=== PATIENT | male | born 1945 | race Caucasian/White ===

== ENCOUNTER → 2016-10-12 | Outpatient (CLI) | payer BC ==
[~2016-10-12] MED LIST: ASPI81TA28 PO; LEVO137T3 PO; NAPR1TAB9 PO
[2016-10-12 10:36] LABS: BASO % 0.7 %; BASO ABS # 0.03 K/uL (0-0.2); COMPLETE YES; EOS % 5.5 %; HEMATOCRIT 40.6 % (42-52); IG% 0.2 %; LYMPH % 24.1 %; LYMPH ABS # 1.05 K/uL (1.2-3.4); MEAN CELL VOLUME 96.9 fL (80-100); MEAN CORPUSCULAR HEMOGLOBIN 31.7 pg (25-34); MEAN CORPUSCULAR HGB CONC 32.8 g/dl (32-36); MEAN PLATELET VOLUME 10.8 fL (7.4-10.4); MONO % 14.2 %; NEUT % 55.3 %; PLATELET COUNT 309 K/uL (130-400); RED BLOOD COUNT 4.19 M/uL (4.7-6.1); WHITE BLOOD COUNT 4.36 K/uL (4.8-10.8)
[2016-10-12 10:51] LABS: URINE APPEARANCE CLEAR (CLEAR); URINE BILIRUBIN NEG (NEG); URINE COLOR YELLOW; URINE NITRITE NEG (NEG); URINE PH 6.5 (4.5-7.5); URINE SPECIFIC GRAVITY 1.015 (1.000-1.030); UROBILINOGEN NEG (NEG)
[2016-10-12 10:55] LABS: MANUAL MICROSCOPIC REQUIRED? NO; REVIEW REQ? NO
[2016-10-12 11:19] LABS: ALT/SGPT 21 U/L (12-78); AST/SGOT 20 U/L (15-37); BLOOD UREA NITROGEN 23 mg/dl (7-18); BUN/CREATININE RATIO 23.3 (10-20); CALCIUM 8.5 mg/dl (8.5-10.1); CARBON DIOXIDE 29 mmol/L (21-32); CHLORIDE 107 mmol/L (98-107); GLUCOSE 94 mg/dl (70-99); POTASSIUM 4.1 mmol/L (3.5-5.1); SODIUM 142 mmol/L (136-145); TRIGLYCERIDES 66 mg/dl (0-150); VERY LOW DENSITY LIPOPROT CALC 13 mg/dl
[2016-10-12 11:30] LABS: ALKALINE PHOSPHATASE 108 U/L (45-117); CHOLESTEROL 194 mg/dl (0-200); CHOLESTEROL/HDL RATIO 2.5; HDL CHOLESTEROL 78 mg/dl; LDL CHOLESTEROL CALCULATED 103 mg/dl; THYROID STIMULATING HORMONE 0.793 uIu/ml (0.300-4.500)
== END | disposition home or self-care (01) ==
LOC: C.LABBC 07:58
PROVIDERS: ATTEND Internal Medicine Pulmonary Disease
DX: Z00.00 Encounter for general adult medical examination without abnormal findings (principal); Z12.5 Encounter for screening for malignant neoplasm of prostate; E78.5 Hyperlipidemia, unspecified; E03.9 Hypothyroidism, unspecified

== ENCOUNTER → 2016-10-15 | Outpatient (CLI) | payer BC | END | disposition home or self-care (01) | LOC: C.LAB1850 11:06 | PROVIDERS: ATTEND Internal Medicine Pulmonary Disease | DX: Z00.00 Encounter for general adult medical examination without abnormal findings (principal); E78.5 Hyperlipidemia, unspecified; E03.9 Hypothyroidism, unspecified; N41.9 Inflammatory disease of prostate, unspecified ==

== ENCOUNTER → 2016-12-01 | Outpatient (CLI) | payer BC ==
[2016-12-01 17:19] LABS: URINE APPEARANCE CLEAR (CLEAR); URINE BILIRUBIN NEG (NEG); URINE COLOR YELLOW; URINE NITRITE NEG (NEG); URINE PH 6.5 (4.5-7.5); URINE SPECIFIC GRAVITY 1.012 (1.000-1.030); UROBILINOGEN NEG (NEG); ZZUR CULT IF INDIC CLEAN CATCH NO
[2016-12-01 17:22] LABS: MANUAL MICROSCOPIC REQUIRED? NO; REVIEW REQ? NO
== END ==
LOC: C.LABBC 14:10
PROVIDERS: ATTEND Internal Medicine Pulmonary Disease
DX: N41.9 Inflammatory disease of prostate, unspecified (principal)

== ENCOUNTER → 2016-12-07 | Outpatient (CLI) | payer BC | END | disposition home or self-care (01) | LOC: C.PATHSPEC 17:06 | PROVIDERS: ATTEND Nurse Practitioner Adult Health | DX: R31.29 Other microscopic hematuria (principal) ==

== ENCOUNTER → 2016-12-08 | Outpatient (CLI) | payer BC ==
[~2016-12-08] MED LIST changes: +OPTIRAY 320 IV PRN
--- NOTE | 2016-12-08 08:30 | DIAGNOSTIC IMAGING REPORT ---
ABDOMEN AND PELVIS CT WITH AND WITHOUT IV CONTRAST, UROGRAM PROTOCOL CT DOSE: 1531.23 mGycm HISTORY: HEMATURIA 10/12/16 CREA =1.00 TECHNIQUE: Multiaxial CT images of the abdomen and pelvis were performed both before and after the use of intravenous contrast to evaluate the urinary system. Maximal intensity projection images were performed at the workstation by the radiologist. COMPARISON STUDY: None. FINDINGS: No renal or ureteral calculi. No hydronephrosis. No suspicious filling defects seen within the opacified bilateral renal collecting systems or ureters. Of note, there is a short segment within the mid to distal left ureter which is unopacified throughout the examination. The bladder only partially opacified. There is mild to moderate diffuse bladder wall thickening. There is a 3.7 cm left posterior bladder diverticulum. There is posterior bladder wall trabeculation with multiple small diverticula.. Question of mild focal thickening within the left posterior bladder wall on image 147 of 196. This measures 7 mm in size. The lung bases are clear. A 5 mm hypodense lesion within the right hepatic lobe is too small to characterize. The spleen, adrenal glands, and pancreas are unremarkable. Normal gallbladder. A 3 mm hypodense lesion within the lower pole the right kidney is too small to characterize. The left kidney enhances normally. No retroperitoneal lymphadenopathy. Colonic diverticulosis. No definite bowel wall thickening or obstruction. IMPRESSION: 1. No renal or ureteral stones. No hydronephrosis. 2. No suspicious filling defects seen within the opacified bilateral renal collecting systems or ureters. 3. Mild to moderate bladder wall thickening with trabeculation and multiple small posterior bladder wall diverticula. There is also a 3.7 cm left posterior bladder diverticulum. 4. There is suggestion of a 7 mm nodular filling defect within the left posterior bladder wall. This could be due to the trabeculation. However, a small urothelial lesion is not excluded. Cystoscopy is recommended for further evaluation. Electronically signed by: Ba Dover M.D. 12/08/2016 8:29 AM Dictated Date/Time: 12/08/2016 8:17 AM
== END | disposition home or self-care (01) ==
LOC: C.CTS 07:03
PROVIDERS: ATTEND Nurse Practitioner Adult Health
DX: R31.29 Other microscopic hematuria (principal)

== ENCOUNTER → 2016-12-24 | Outpatient (CLI) | payer BC ==
[~2016-12-24] MED LIST changes: -OPTIRAY 320 IV PRN
--- NOTE | 2016-12-24 10:42 | DIAGNOSTIC IMAGING REPORT ---
CHEST 2 VIEWS ROUTINE CLINICAL HISTORY: R31.29 [id number] Urinary stream [id number] Hypospady COMPARISON STUDY: 10/16/2013 FINDINGS: The bones soft tissues and hemidiaphragms are normal. The cardiomediastinal silhouette is normal. The lungs are clear. The pulmonary vasculature is normal. IMPRESSION: Negative chest. Electronically signed by: Gadiel Patterson M.D. 12/24/2016 10:40 AM Dictated Date/Time: 12/24/2016 10:40 AM
[2016-12-24 12:04] LABS: BASO % 0.4 %; BASO ABS # 0.02 K/uL (0-0.2); COMPLETE YES; EOS % 2.2 %; HEMATOCRIT 40.4 % (42-52); IG% 0.2 %; LYMPH % 15.1 %; LYMPH ABS # 0.84 K/uL (1.2-3.4); MEAN CELL VOLUME 96.4 fL (80-100); MEAN CORPUSCULAR HEMOGLOBIN 32.2 pg (25-34); MEAN CORPUSCULAR HGB CONC 33.4 g/dl (32-36); MEAN PLATELET VOLUME 10.5 fL (7.4-10.4); MONO % 13.3 %; NEUT % 68.8 %; PLATELET COUNT 284 K/uL (130-400); RED BLOOD COUNT 4.19 M/uL (4.7-6.1); WHITE BLOOD COUNT 5.57 K/uL (4.8-10.8)
[2016-12-24 12:16] LABS: BLOOD UREA NITROGEN 20 mg/dl (7-18); BUN/CREATININE RATIO 18.4 (10-20); CALCIUM 9.3 mg/dl (8.5-10.1); CARBON DIOXIDE 28 mmol/L (21-32); CHLORIDE 108 mmol/L (98-107); GLUCOSE 83 mg/dl (70-99); POTASSIUM 4.2 mmol/L (3.5-5.1); SODIUM 140 mmol/L (136-145)
== END | disposition home or self-care (01) ==
LOC: C.CPL 09:54
PROVIDERS: ATTEND Urology
DX: R31.29 Other microscopic hematuria (principal); R39.198 Other difficulties with micturition; Q54.9 Hypospadias, unspecified

== ENCOUNTER → 2017-01-10 | Day surgery (SDC) | payer BC ==
[2017-01-03 09:02] VITALS: BMI 22.0
[~2017-01-10] VITALS: Ht 182.9 cm; Wt 75.0 kg
[~2017-01-10] MED LIST changes: +ACETAMINOPHEN 325 MG TAB PO PRN; +ATROPINE SULFATE 0.1 MG/ML 5ML SYR IV PRN; +CIPROFLOXACIN / D5W 400 MG IV SCH; +EpHEDrine SULFATE INJ 50 MG/ML AMP IV PRN; +FENTANYL CITRATE INJ 50 MCG/1 ML 2 ML VIAL IV PRN; +FENTANYL CITRATE INJ 50 MCG/1 ML 2 ML VIAL ONE; +HYDROCODONE/ACETAMOPHEN 5/325MG TAB PO PRN; +HYDROmorphone INJ 1 MG/ML SYR IV PRN; +LACTATED RINGER'S 1000ML 1,000 ML IV SCH; +LIDOCAINE HCL 2% 2 ML VIAL (20MG/ML) ONE; +MIDAZOLAM HCL 1 MG/ML 2ML VIAL ONE; +ONDANSETRON INJ 2 MG/ML 2 ML VIAL IV PRN; +PHENAZOPYRIDINE HCL 200 MG TAB PO STA; +PROPOFOL IV EMULSION 10 MG/ML 20 ML VIAL IV ONE; +SODIUM CHLORIDE 0.9% 1000ML 1,000 ML IV SCH
[2017-01-10 08:45] VITALS: BP 130/66; PULSE 60; TEMP 36.8; O2SAT 97; Ht 182.9 cm; Wt 75.0 kg
--- NOTE | 2017-01-10 10:14 | History & Physical Bridge Note ---
H&P Re-Evaluation Bridge Note: I have examined the patient, reviewed the History & Physical and in the interval since the performance of the History & Physical I have noted the following changes of clinical significance: No changes noted
--- NOTE | 2017-01-10 11:08 | [facility] Operative Report ---
Operative Report Operative Date Jan 10, 2017. Pre-Operative Diagnosis Hematuria; hypospadias Post-Operative Diagnosis Hematuria; hypospadias Procedure(s) Performed Flexible Cystoscopy, Urethral Dilation Surgeon Dr. Dill Remote Sensing Analyst Surgeon(s) none Estimated Blood Loss 0 cc Findings Glanular hypospadias; bladder diverticulum; modest prostatic enlargement Specimens none per surgeon Drains none Anesthesia sedation Complication(s) None Disposition Recovery Room / PACU (stable) Indications Gross hematuria Description of Procedure Giacomo Oliver was identified in the preoperative holding area, appropriate informed consent was reviewed and completed and the patient was transported to the operating suite. Upon arrival he received appropriate preoperative antibiotics in the form of ciprofloxacin. He was sedated and placed in standard dorsal lithotomy position where he was sterilely prepped and draped. I begin the case by gently dilating a urethral meatus that was found on the inferior aspect of the glans. I utilized hemostat to dilate this. I was unable to pass a flexible ureteroscope per urethra. He had no evidence of urethral stricture disease in the bulb. Prostate was moderately enlarged and had a small intravesical component. Inspection of the bladder was carried out. Head no evidence of bladder tumors. He has a severely trabeculated bladder and a notable bladder diverticulum. I inspected the diverticulum and found no evidence of tumor within the diverticulum itself. After completing my evaluation next carefully withdrew the scope and concluded the case. Patient was reversed from anesthesia and taken to the PACU in stable condition. I attest to the content of the Intraoperative Record and any orders documented therein. Any exceptions are noted below.
--- NOTE | 2017-01-10 11:11 | Discharge Instructions ---
Discharge Instructions Date of Service Jan 10, 2017. Admission Reason for Admission: Hypospadias, Meatal Stenosis, Benign Prostatic Hyp Discharge Discharge Diagnosis / Problem: hypospadias; hematuria Discharge Goals Goal(s): Decrease discomfort, Improve function, Increase independence, Improve disease control, Prevent Disease Progression Activity Recommendations Activity Limitations: resume your previous activity Lifting Limitations: none Exercise/Sports Limitations: none May Resume Sexual Activity: when tolerated Shower/Bathe: no limitations Driving or Machine Use: resume 1 day after discharge . Instructions / Follow-Up Instructions / Follow-Up Please keep her previously scheduled follow-up appointment. You do not need any prescriptions at home. Discharge Diet Recommended Diet: Regular Diet Procedures Procedures Performed: Flexible Cystoscopy, Urethral Dilation Pending Studies Studies pending at discharge: no Laboratory Results Lipid Panel Test 10/12/16 08:01 Range/Units Triglycerides Level 66 0-150 mg/dl Cholesterol Level 194 0-200 mg/dl HDL Cholesterol 78 mg/dl Cholesterol/HDL Ratio 2.5 LDL Cholesterol, Calculated 103 mg/dl Medical Emergencies . Who to Call and When: Medical Emergencies: If at any time you feel your situation is an emergency, please call 911 immediately. . Non-Emergent Contact Non-Emergency issues call your: Urologist Call Non-Emergent contact if: you have a fever, temperature is above 101.5, your pain is not controlled, your pain is worsening, wound has increased pain . . "Provider Documentation" section prepared by Ugo Sanon. . VTE Core Measure Inpt VTE Proph given/why not?: Treatment not indicated
--- NOTE | 2017-01-10 11:15 | Anesthesiology Progress Note ---
Anesthesia Post Op Note Date & Time Jan 10, 2017 at 11:15 Vital Signs Pain Intensity: 0 Vital Signs Past 12 Hours Date Time Temp Pulse Resp B/P (MAP) Pulse Ox O2 Delivery O2 Flow Rate FiO2 01/10/17 11:10 51 14 109/65 98 Oxymask 3 01/10/17 11:00 53 14 101/61 98 Oxymask 10 01/10/17 10:54 36.3 54 14 97/49 98 Oxymask 10 01/10/17 08:45 36.8 60 18 130/66 (87) 97 Room Air Notes Mental Status: alert / awake / arousable, participated in evaluation Pt Amnestic to Procedure: Yes Nausea / Vomiting: adequately controlled Pain: adequately controlled Airway Patency, RR, SpO2: stable & adequate BP & HR: stable & adequate Hydration State: stable & adequate Anesthetic Complications: no major complications apparent
[2017-01-10 11:20] VITALS: BP 117/70; PULSE 54; TEMP 36.6; O2SAT 95
[2017-01-10 11:50] VITALS: BP 125/69; PULSE 56; TEMP 36.6; O2SAT 95
== END | disposition home or self-care (01) ==
LOC: C.ACU 08:05
PROVIDERS: ATTEND Urology
DX: Q54.0 Hypospadias, balanic (principal); N32.3 Diverticulum of bladder; N40.1 Benign prostatic hyperplasia with lower urinary tract symptoms; N13.8 Other obstructive and reflux uropathy; E78.5 Hyperlipidemia, unspecified; E03.9 Hypothyroidism, unspecified; Z79.82 Long term (current) use of aspirin; Z79.899 Other long term (current) drug therapy

== ENCOUNTER → 2017-03-22 | Outpatient (CLI) | payer BC ==
[~2017-03-22] MED LIST changes: -ACETAMINOPHEN 325 MG TAB PO PRN; -ATROPINE SULFATE 0.1 MG/ML 5ML SYR IV PRN; -CIPROFLOXACIN / D5W 400 MG IV SCH; -EpHEDrine SULFATE INJ 50 MG/ML AMP IV PRN; -FENTANYL CITRATE INJ 50 MCG/1 ML 2 ML VIAL IV PRN; -FENTANYL CITRATE INJ 50 MCG/1 ML 2 ML VIAL ONE; -HYDROCODONE/ACETAMOPHEN 5/325MG TAB PO PRN; -HYDROmorphone INJ 1 MG/ML SYR IV PRN; -LACTATED RINGER'S 1000ML 1,000 ML IV SCH; -LIDOCAINE HCL 2% 2 ML VIAL (20MG/ML) ONE; -MIDAZOLAM HCL 1 MG/ML 2ML VIAL ONE; -ONDANSETRON INJ 2 MG/ML 2 ML VIAL IV PRN; -PHENAZOPYRIDINE HCL 200 MG TAB PO STA; -PROPOFOL IV EMULSION 10 MG/ML 20 ML VIAL IV ONE; -SODIUM CHLORIDE 0.9% 1000ML 1,000 ML IV SCH
--- NOTE | 2017-03-22 16:19 | DIAGNOSTIC IMAGING REPORT ---
L EXTREMITY NONVASCULAR LIMITED CLINICAL HISTORY: 71 years-old Male presenting with R22.32 Lump of skin of left upper extremity left forearm. TECHNIQUE: Real-time grayscale ultrasound imaging of the left upper extremity was performed. Color Doppler was also performed. COMPARISON: None. FINDINGS: At the site of clinical concern along the dorsal lateral left forearm immediately distal to the elbow joint, diffuse subcutaneous edema evidence by dilated lymphatics. An ill-defined irregular hypoechoic region measuring 1.7 x 2.2 x 0.6 cm is noted within this region of edema. No significant peripheral hyperemia. IMPRESSION: 1. Findings could suggest olecranon bursitis in the appropriate clinical setting and anatomic location. Correlate clinically. Other differential considerations include hematoma or phlegmonous change. Electronically signed by: Nawaf Mulligan M.D. 03/22/2017 4:17 PM Dictated Date/Time: 03/22/2017 4:14 PM
== END | disposition home or self-care (01) ==
LOC: C.ULTR 15:25
PROVIDERS: ATTEND Physician Assistant Medical
DX: R22.32 Localized swelling, mass and lump, left upper limb (principal)

== ENCOUNTER → 2017-10-15 | Outpatient (CLI) | payer BC ==
[2017-10-15 07:55] LABS: BASO % 0.4 %; BASO ABS # 0.03 K/uL (0-0.2); EOS % 5.8 %; EOS ABS # 0.39 K/uL (0-0.5); HEMATOCRIT 42.1 % (42-52); HEMOGLOBIN 14.6 g/dL (14.0-18.0); IG# 0.02 K/uL (0.00-0.02); LYMPH % 15.9 %; LYMPH ABS # 1.06 K/uL (1.2-3.4); MEAN CORPUSCULAR HGB CONC 34.7 g/dl (32-36); MEAN PLATELET VOLUME 9.5 fL (7.4-10.4); MONO % 8.8 %; MONO ABS # 0.59 K/uL (0.11-0.59); NEUT % 68.8 %; NEUT ABS # 4.59 K/uL (1.4-6.5); PLATELET COUNT 296 K/uL (130-400); RED CELL DISTRIBUTION WIDTH CV 12.9 % (11.5-14.5); RED CELL DISTRIBUTION WIDTH SD 45.3 fL (36.4-46.3); WHITE BLOOD COUNT 6.68 K/uL (4.8-10.8)
[2017-10-15 08:31] LABS: ALBUMIN 3.7 gm/dl (3.4-5.0); ALT/SGPT 30 U/L (12-78); AST/SGOT 26 U/L (15-37); BLOOD UREA NITROGEN 28 mg/dl (7-18); CALCIUM 9.3 mg/dl (8.5-10.1); CARBON DIOXIDE 27 mmol/L (21-32); CHOLESTEROL 218 mg/dl (0-200); CREATININE 1.17 mg/dl (0.60-1.40); GLUCOSE 94 mg/dl (70-99); POTASSIUM 4.1 mmol/L (3.5-5.1); SODIUM 139 mmol/L (136-145)
[2017-10-15 08:42] LABS: ALKALINE PHOSPHATASE 124 U/L (45-117); LDL CHOLESTEROL CALCULATED 129 mg/dl; TOTAL PROTEIN 7.4 gm/dl (6.4-8.2)
== END ==
LOC: C.LAB 07:26
PROVIDERS: ATTEND Internal Medicine Pulmonary Disease
DX: E78.5 Hyperlipidemia, unspecified (principal); E03.9 Hypothyroidism, unspecified; R33.9 Retention of urine, unspecified

== ENCOUNTER 2018-08-23 05:10 | Inpatient (IN) ==
--- NOTE | 2018-08-01 11:37 | Anesthesiology Consultation ---
Date of Service August 01, 2018 Assessment & Plan (1) Encounter for pre-operative examination: Chart Review Chart Review: Acceptable Risk for Surgery and Patient seen in Pre Admission Testing Consults Requested medical (Dr. Eller (2 weeks ago)) Saw PCP on 07/21 for pre-op exam. PCP note states, "He is cleared for his upcoming surgery from a general medical standpoint." Teaching & Discussion Pre-Anesthesia Teaching/Discussion Notes: Instructed NPO after midnight before surgery, except medications with 15 cc of water. Medication instructions provided according to the PAT guidelines. History Surgery Operation Date: 08/23/18 07:00 Proposed Procedures p Right Total Hip Arthroplasty - Christian Kee MD Height/Weight Height: 6 ft 1 in Weight: 79 kg Allergies Allergy/AdvReac Type Severity Reaction Status Date / Time No Known Allergies Allergy Verified 07/27/18 07:50 Medications Home Medications Medication Instructions Recorded Confirmed Last Taken aspirin [Aspir-81] 81 mg PO QAM 07/27/18 07/27/18 Unknown levothyroxine 137 mcg PO QAM 07/27/18 07/27/18 Unknown naproxen sodium [Aleve] 440 mg PO BID PRN 07/27/18 07/27/18 Unknown tamsulosin 0.4 mg PO QPM 07/27/18 07/27/18 Unknown Past Medical History Medical History BPH (benign prostatic hyperplasia) Hypothyroidism Osteoarthritis Past Surgical History Surgical History History of arthroscopy knee (?unsure which one) History of colonoscopy History of cystoscopy History of melanoma excision ear excision Past Anesthesia History No Hx of Anesthesia Complications and No Family Hx of Anesthesia Complications History of PONV No Motion Sickness Screening History of Motion Sickness: No Social History Smoking Status: Never smoker Do You Dip or Chew Tobacco: No Hx Alcohol Use: No Alcohol Intake Frequency Comment: 0 Hx Substance Use: No substance use type: does not use Exercise / Class Metabolic Activity 1 > 8 Run/Swim/Ski/Tennis (Biking, Running, Walking. Able to climb FOS. Denies CP or SOB. ) Review of Systems Patient denies chest pain, shortness of breath, dyspnea on exertion, reflux, cough, wheezing, palpitations. +joint pain (hip) Physical Exam Vital Signs BP: 107/71 P: 59 R: 14 T: 98.3 SPO2: 98% on RA ENMT Thyromental Distance: > or= 3.5 Finger Breadths (3.5) Mallampati Class: II Neck normal visual inspection and trachea midline; neck extension not limited Respiratory normal respiratory effort Auscultation: lungs clear to auscultation bilaterally Cardiovascular Rate/Rhythm: regular rate and regular rhythm Heart Sounds: no murmur Vessels: no carotid bruit Neurologic moves all extremities Psychiatric Orientation: alert and oriented x 3 Testing Electrocardiogram Date: 08/01/18 Findings: + SB @ (54) and + no change from (12/24/16) Chest X-Ray Date: 08/01/18 Findings: + NAD FINDINGS: Cardiomediastinal and hilar silhouettes are within normal limits. Calcification the thoracic aortic arch. Biapical pleural-parenchymal scarring without pneumothorax, pleural effusion, focal airspace consolidation or overt pulmonary edema. Lungs are hyperinflated with increased lucency suggestive of underlying emphysema. Unchanged opacity about the right cardiophrenic angle suggestive of a prominent epicardial fat pad. Degenerative changes of the shoulders and spine. IMPRESSION: Hyperinflation without acute process. Laboratory Results 08/01/18 12:35 08/01/18 12:35 Blood Type O Positive 08/01/18 12:35 Antibody Screen NEGATIVE 08/01/18 12:35 PT 10.1 Seconds (9.0-12.0) 08/01/18 12:35 INR 1.0 (0.9-1.1) 08/01/18 12:35 APTT 25.2 Seconds (21.0-31.0) 08/01/18 12:35 Urine Color Yellow 08/01/18 12:35 Urine Appearance Clear (Clear) 08/01/18 12:35 Urine pH 6.5 (4.5-7.5) 08/01/18 12:35 Ur Specific [place] 1.022 (1.000-1.030) 08/01/18 12:35 Urine Protein 2+ (Negative) H 08/01/18 12:35 Urine Glucose (UA) Negative (Negative) 08/01/18 12:35 Urine Ketones Negative (Negative) 08/01/18 12:35 Urine Nitrite Negative (Negative) 08/01/18 12:35 Ur Leukocyte Esterase Trace (Negative) H 08/01/18 12:35 Urine WBC (Auto) 5-10 /hpf (0-5) H 08/01/18 12:35 Urine RBC (Auto) 5-10 /hpf (0-4) H 08/01/18 12:35 U Hyaline Cast (Auto) 1-5 /lpf (0-5) 08/01/18 12:35 U Epithel Cells (Auto) 5-10 /lpf (0-5) H 08/01/18 12:35 Urine Bacteria (Auto) Negative (Negative) 08/01/18 12:35
--- NOTE | 2018-08-01 11:38 | PAT Medication Instructions ---
Medication Instructions Date of Service August 01, 2018 Home Medications aspirin [Aspir-81] 81 mg PO QAM levothyroxine 137 mcg PO QAM naproxen sodium [Aleve] 440 mg PO BID tamsulosin 0.4 mg PO QPM ASK your surgeon for instructions naproxen sodium [Aleve] 440 mg PO BID Take morning of surgery With a small sip of water, OTHERWISE NOTHING TO EAT OR DRINK AFTER MIDNIGHT: aspirin [Aspir-81] 81 mg PO QAM levothyroxine 137 mcg PO QAM Take evening before surgery tamsulosin 0.4 mg PO QPM Other Notes If you have any questions please call us at [phone] or [phone] or [phone] or [phone]
--- NOTE | 2018-08-01 14:21 | XRay Report ---
XR chest Pre-admission PA/Lat HISTORY: 72 years-old Male PAT preoperative exam. No acute chest complaints COMPARISON: Chest radiograph 12/24/2016 TECHNIQUE: PA and lateral views of the chest FINDINGS: Cardiomediastinal and hilar silhouettes are within normal limits. Calcification the thoracic aortic a rch. Biapical pleural-parenchymal scarring without pneumothorax, pleural effusion, focal airspace con solidation or overt pulmonary edema. Lungs are hyperinflated with increased lucency suggestive of und erlying emphysema. Unchanged opacity about the right cardiophrenic angle suggestive of a prominent ep icardial fat pad. Degenerative changes of the shoulders and spine. IMPRESSION: Hyperinflation without acute process. The above report was generated using voice recognition software. It may contain grammatical, syntax o r spelling errors. Electronically signed by: Nestor Brooks M.D. 08/01/2018 2:20 PM
[2018-08-01 14:43] LABS: Basophils # (auto) 0.02 K/uL (0-0.2); Basophils % (auto) 0.4 %; Eosinophils # (auto) 0.17 K/uL (0-0.5); Eosinophils % (auto) 3.7 %; Hematocrit (blood only) 39.8 % (42-52); Hemoglobin 13.2 g/dL (14.0-18.0); Immature Granulocytes # (auto) 0.01 K/uL (0.00-0.02); Immature Granulocytes % (auto) 0.2 %; Lymphocytes # (auto) 0.88 K/uL (1.2-3.4); Lymphocytes % (auto) 19.3 %; Mean Corpuscular Hgb Conc 33.2 g/dL (32-36); Mean Corpuscular Volume 96.1 fL (80-100); Monocytes # (auto) 0.56 K/uL (0.11-0.59); Monocytes % (auto) 12.3 %; Neutrophils # (auto) 2.92 K/uL (1.4-6.5); Neutrophils % (auto) 64.1 %; Platelet Count 277 K/uL (130-400); RDW Coefficient of Variation 13.1 % (11.5-14.5); Red Blood Count 4.14 M/uL (4.7-6.1); White Blood Count 4.56 K/uL (4.8-10.8)
[2018-08-01 15:01] LABS: Calcium 8.9 mg/dl (8.5-10.1); Creatinine Clr Calc Pharmacy 68.3 ml/min; Est GFR (African American) 79.7; Est GFR (Non-African American) 68.8; Potassium 4.7 mmol/L (3.5-5.1)
[2018-08-01 15:04] LABS: Partial Thromboplastin Time 25.2 Seconds (21.0-31.0); Prothrombin Time 10.1 Seconds (9.0-12.0)
[2018-08-01 15:24] LABS: Appearance Urine Clear (Clear); Bacteria Urine Automated Negative (Negative); Bilirubin Urine Negative (Negative); Blood Urine 1+ (Negative); Color Urine Yellow; Glucose Urine UA Negative (Negative); Ketones Urine Negative (Negative); Leukocyte Esterase Urine Trace (Negative); Nitrite Urine Negative (Negative); Protein Urine 2+ (Negative); Specific Gravity Urine 1.022 (1.000-1.030); Urobilinogen Urine Negative (Negative); pH Urine 6.5 (4.5-7.5)
--- NOTE | 2018-08-02 15:13 | History and Physical Report ---
DATE OF ADMISSION: 08/23/2018 DATE OF SURGERY: 08/23/2018. CHIEF COMPLAINT: Right hip pain. HISTORY OF PRESENT ILLNESS: This 72-year-old white male presents to the office with complaints of right hip pain that had been longstanding for several years. 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 Pain has become worse with time. It is affecting his ADLs. He notes loss of motion of the hip. No numbness or tingling. He has tried activity modification as well as oral anti-inflammatories without lasting improvement. Preoperative imaging has been obtained. He elects to proceed with right total hip arthroplasty in hopes of alleviating his pain. He does get night pain that affects his sleep. Pain is worse with weightbearing. PAST MEDICAL HISTORY: Significant for hypothyroidism, history of sarcoidosis, history of malignant melanoma, BPH, osteoarthritis, history of Crohn's colitis, and history of UTIs. PREVIOUS SURGERIES: Colonoscopy, Mohs surgery, nasal endoscopy with polypectomy, nasal septal defect repair, history of radical neck dissection, knee surgery for MCL repair. FAMILY HISTORY: Significant for thyroid cancer. SOCIAL HISTORY: The patient is . [employer] professor. No tobacco use, no ETOH use. ALLERGIES: NKDA. CURRENT MEDICATIONS: Aleve 220 mg b.i.d., aspirin 81 mg daily, multivitamin daily, Synthroid 112 mcg p.o. daily, tamsulosin 0.4 mg p.o. daily. REVIEW OF SYSTEMS: A total of 10 systems were reviewed and are significant only for above stated conditions. PHYSICAL EXAMINATION: GENERAL: Well-developed, well-nourished, thin elderly white male in no acute distress. Sitting in a chair. Alert and oriented. SKIN: Warm and dry with good turgor. No rashes or lesions. No ecchymosis or erythema. HEENT: Normocephalic, atraumatic. Eyes: PERRLA, EOMI. Nares patent bilaterally without turbinate enlargement. Oropharynx without erythema or exudate. No lesions noted. Uvula midline. Oral mucosa moist. Fair dentition. Dental caps and fillings are noted. HEART: Bradycardic, RRR. No MGR. LUNGS: Clear to auscultation bilaterally. No crackles, rhonchi or wheezing. Good air movement. ABDOMEN: Bowel sounds present x4, soft, nontender. No organomegaly. No masses. MUSCULOSKELETAL: Right hip has no obvious asymmetry or deformity. Good hip flexion without discomfort. Very limited internal and external rotation secondary to pain. He has a 10-degree external rotation contracture. Internal rotation just to neutral secondary to pain. Knee exam reveals no intraarticular effusion and no discomfort. Ambulatory with a very slightly antalgic gait. Leg lengths are equal. NEUROLOGIC: Cranial nerves II through XII are intact. Gross sensation is intact across both lower extremities by soft touch. Peripheral pulses are 2+. DATA: Radiographic imaging previously obtained in March shows advanced DJD of the right hip. Periarticular osteophytes, subchondral sclerosis, and joint space narrowing are all present. IMPRESSION: Right hip end-stage degenerative joint disease. PLAN: Postoperative prescriptions for Percocet and Coumadin will be provided at discharge from the hospital. Anticipate discharge to home with home health services. Prescription was provided for a walker. Preoperative lab work, EKG, and chest x-ray have been ordered. He has already obtained medical clearance from his PCP. MUKUL
[2018-08-23] MEDS ORDERED: CEFAZOLIN 2000MG 2,000 MG/15 ML SYR IV SCH (06:00)
[2018-08-23] MEDS ORDERED: LR 15ML/HR IV SCH (06:00)
[2018-08-23] MEDS ORDERED: TRANEXAMIC ACID 1,000 MG **IV Pre-op IV SCH (06:00)
[2018-08-23] MEDS ORDERED: LR 500ML BOLUS, THEN 15ML/HR IV SCH (06:00)
[2018-08-23] MEDS ORDERED: ROPIVACAINE 0.5% HCL/PF 150 MG, BUPIVACAINE 0.5% MPF 30 ML, EPINEPHrine 0.15 MG, Ketoro... INFIL SCH (06:00)
[2018-08-23] MEDS ORDERED: LACTATED RINGER'S 1,000 ML IV SCH (06:00)
[2018-08-23] MEDS ORDERED: BUPIVACAINE 0.5 % 5 MG/1 ML PF 10ML VIAL ONE (06:14)
[2018-08-23] MEDS ORDERED: PROPOFOL IV EMULSION 10 MG/ML 20 ML VIAL IV ONE (06:33)
[2018-08-23] MEDS ORDERED: LIDOCAINE HCL 2% 2 ML VIAL/AMP(20MG/ML) INFIL ONE (06:33)
[2018-08-23] MEDS ORDERED: fentaNYL citrate 100 MCG/2 ML VIAL ONE (06:33)
--- NOTE | 2018-08-23 06:33 | History & Physical Bridge Note ---
Date of Service August 23, 2018 History & Physical Bridge Note I have examined the patient, reviewed the History & Physical and in the interval since the performance of the History & Physical I have noted the following changes of clinical significance:consent obtained. no changes noted
[2018-08-23] MEDS ORDERED: KETAMINE HCL INJ 50 MG/ML 10 ML VIAL ONE (06:34)
[2018-08-23] MEDS ORDERED: MIDAZOLAM HCL 1 MG/ML 2ML VIAL ONE (06:34)
[2018-08-23] MEDS ORDERED: ePHEDrine sulfate 50 MG/ML AMP IV PRN (06:37)
[2018-08-23] MEDS ORDERED: ATROPINE SULFATE 0.1 MG/ML 10ML SYR IV PRN (06:37)
[2018-08-23] MEDS ORDERED: ONDANSETRON INJ 2 MG/ML 2 ML VIAL IV PRN ×2 (06:37→09:36)
[2018-08-23] MEDS ORDERED: fentaNYL citrate 100 MCG/2 ML VIAL IV PRN (06:37)
[2018-08-23] MEDS ORDERED: ORTHO JOINT ANESTHETIC ONE (07:01)
[2018-08-23] MEDS ORDERED: POVIDONE-IODINE OP SOLN 30 ML BTL ONE (07:02)
[2018-08-23] MEDS ORDERED: ePHEDrine sulfate 50 MG/ML SYR ONE (07:31)
--- NOTE | 2018-08-23 08:48 | Operative Report ---
DATE OF OPERATION: 08/23/2018 SURGEON: Christian Kee MD NEWS WIRE PHOTO OPERATOR: Brandyn Hill PA-C. No resident or fellow available. PREOPERATIVE DIAGNOSIS: Osteoarthritis, right hip. POSTOPERATIVE DIAGNOSIS: Osteoarthritis, right hip. OPERATION PERFORMED: Noncemented right total hip replacement. PERIOPERATIVE SITUATION: Medically cleared male with intractable hip pain that has been followed for years. At this point in time, he wants to proceed with surgical treatment. All risks and benefits described. Please see consent. He understands there are no guarantees. SUMMARY OF IMPLANTS: Size 52 acetabular shell sector cup hole eliminator, 6.5 x 25 cancellous screw, 36 x 52 neutral liner, 6 high-offset Tri-Lock 36, +1.5 femoral head. ESTIMATED BLOOD LOSS: 100 mL. CRYSTALLOID: Per anesthesia. DVT prophylaxis with Coumadin. Bone pathology pending on femoral head resection. DESCRIPTION OF PROCEDURE: The patient was appropriately identified, site verified, consent verified. Antibiotics confirmed as being given. The right lower extremity was prepped and draped in usual routine fashion with the patient in left lateral decubitus position. A posterior approach to the hip carried out. Sharp dissection was carried through skin and blunt dissection down to the fascia. This was then incised under direct vision. Retractors placed. Care taken to protect the sciatic nerve. Short external rotators identified and then released. Arterial bleeding controlled with the thermal device. The hip capsule was then T'd and the hip dislocated. The femoral neck resected. The acetabular exposure was excellent. The labrum was excised. It was calcified and inverted anteriorly. Serial reaming was then carried out up to a size 52 and 52 cup impacted into appropriate anteversion and inclination with good rim fit and purchase. It was then secured with an additional 6.5 x 25 screw with excellent purchase. The wound was then irrigated with Betadine Pulsavac and then the liner seated. The hip was then flexed and internally rotated. The proximal femur prepared with a box office clerk, lateralizing rasp, canal finder and serial broaching up to a size 6. This was then packed into position and a femoral head +1.5, 36 revealed excellent stability in all planes and leg lengths were equal. The hip was then dislocated and then all trial remaining elements were removed. The wound irrigated with Betadine and Pulsavac. Hole eliminator seated, permanent liner seated, permanent stem seated, permanent head seated. The hip reduced. It was stable in all planes. Leg lengths were excellent. It was irrigated with Betadine and Pulsavac and then closed with #2 Vicryl for the capsule, short external rotators and the gluteus harsh and IT band fascia. The fat was then closed with 2-0 Vicryl, subcutaneous layer with 2-0 Vicryl and the skin with stainless steel clips. Appropriate dressing applied. The patient transferred to recovery room in satisfactory condition having tolerated the procedure well. I attest to the content of the Intraoperative Record and any orders documented therein. Any exception s are noted below.
--- NOTE | 2018-08-23 08:50 | XRay Report ---
XR pelvis 1-2V routine CLINICAL HISTORY: Post Surgical postoperative COMPARISON: 04/17/2018 DISCUSSION: Total right hip arthroplasty good position. Good contact between prosthetic and the Bone. Expected soft tissue postoperative surgical change. IMPRESSION: Anatomic alignment post total right hip arthroplasty. The above report was generated using voice recognition software. It may contain grammatical, syntax or spelling errors. Electronically signed by: Gadiel Patterson M.D. 08/23/2018 8:49 AM
[2018-08-23] MEDS ORDERED: ALUMINUM/MAGNESIUM SUSP 30 ML UDC PO PRN (09:36)
[2018-08-23] MEDS ORDERED: DiphenhydrAMINE HCL 50 MG/ML VIAL IV PRN (09:36)
[2018-08-23] MEDS ORDERED: SODIUM CHLORIDE 0.9% 1000ML 1,000 ML IV SCH (09:36)
[2018-08-23] MEDS ORDERED: METOCLOPRAMIDE HCL INJ 5 MG/ML 2 ML VIAL IV PRN (09:36)
[2018-08-23] MEDS ORDERED: OXYCODONE HCL IR 5 MG TAB (IMMEDIATE RELEASE) PO PRN (09:36)
[2018-08-23] MEDS ORDERED: HYDROmorphone INJ 0.5 MG/0.5 ML SYR IV PRN (09:36)
[2018-08-23] MEDS ORDERED: MAGNESIUM HYDROXIDE SUSP 30 ML UDC PO PRN (09:36)
[2018-08-23] MEDS ORDERED: BISACODYL 10 MG SUPP PR PRN (09:36)
[2018-08-23] MEDS ORDERED: NALOXONE HCL 0.4 MG/1 ML VIAL/CARP IV PRN (09:36)
--- NOTE | 2018-08-23 10:11 | Post Operative Brief Note ---
Immediate Post Op Note v1 Date of Surgery August 23, 2018 Pre & Post Diagnosis Operation Date: 08/23/18 07:00 Pre-Op Diagnosis: Right Hip End-Stage Degenerative Joint Disease Post-Op Diagnosis: Right Hip End-Stage Degenerative Joint Disease Procedure Operation Date: 08/23/18 07:00 Actual Procedures p Right Total Hip Arthroplasty--Uncemented(Right) - Christian Kee MD Surgeon Christian Kee MD Cyber Security Systems Engineer [facility] Estimated Blood Loss 100 Findings Consistent with Post-Op Diagnosis
[2018-08-23] MEDS: DOCUSATE SODIUM 100 MG CAP PO SCH ×2 (10:20→20:52)
--- NOTE | 2018-08-23 10:41 | Operative Report ---
Post Operative Report Pre & Post Diagnosis Operation Date: 08/23/18 07:00 Pre-Op Diagnosis: Right Hip End-Stage Degenerative Joint Disease Post-Op Diagnosis: Right Hip End-Stage Degenerative Joint Disease Procedure Operation Date: 08/23/18 07:00 Actual Procedures p Right Total Hip Arthroplasty--Uncemented(Right) - Christian Kee MD Surgeon LEONA Kee MD Material Expediter sevahe Estimated Blood Loss 100 Findings Consistent with Post-Op Diagnosis Specimens see operative report Drains none Complications none Disposition Accompanied Patient To Recovery: Yes Disposition: Recovery Room Indications This 72-year-old white male presented to the office with complaints of intractable right hip pain. He had tried conservative care measures including activity modification, without lasting improvement. He elected to proceed with surgical intervention after being educated about potential risks and outcomes. Preoperative imaging was obtained. Description of Procedure Patient was administered a spinal anesthetic and then taken to the operating room where he was given sedation. He was prepped and draped in the usual sterile fashion. Please see Dr. Kee's operative report for specifics of the procedure. I was present for the entire case from initial patient positioning through final wound closure. Assistance was provided in tissue retraction, hemostasis, trial implant placement, final implant placement, and final wound closure. Patient was taken to the recovery room in satisfactory condition. I attest to the content of the Intraoperative Record and any orders documented therein. Any exceptions are noted below.
[2018-08-23] MEDS: LEVOTHYROXINE SODIUM 137 MCG TABLET PO SCH (10:45)
[2018-08-23] MEDS: ORTHO WARFARIN NOMOGRAM SCH (10:47)
--- NOTE | 2018-08-23 10:49 | Anesthesiology Progress Note ---
Date of Service August 23, 2018 Anesthesia Post Procedure Vital Signs Vital Signs: Temp Pulse Pulse Resp BP Pulse Ox 08/23/18 09:20 63 15 93/57 L 98 08/23/18 09:10 64 20 106/48 L 98 08/23/18 09:00 97.5 F L 61 18 105/55 L 98 08/23/18 08:50 62 20 108/52 L 99 08/23/18 08:40 62 13 107/53 L 98 08/23/18 08:30 60 17 111/53 L 99 08/23/18 08:24 97.5 F L 64 13 107/53 L 98 08/23/18 06:15 98.6 F 66 20 121/70 99 Pain Intensity Right Hip: Pain Intensity: 0 Notes Mental Status: alert / awake / arousable and participated in evaluation Patient Amnestic to Procedure: Yes Nausea / Vomiting: adequately controlled Pain: adequately controlled Airway Patency, RR, SpO2: stable & adequate BP & HR: stable & adequate Hydration State: stable & adequate Neuraxial Anesthesia: was administered and sensory block is resolving Anesthetic Complications: no major complications apparent and Pt Satisfied with anesthetic care
[2018-08-23] MEDS: ASPIRIN 81 MG ECTAB PO SCH (11:42)
[2018-08-23] MEDS: MULTIVITAMIN TAB PO SCH (11:43)
[2018-08-23] MEDS: KETOROLAC TROMETHAMINE 15 MG/ML VIAL IV SCH ×3 (11:43→23:46)
--- NOTE | 2018-08-23 11:52 | Progress Note ---
DATE: 08/23/2018 SUBJECTIVE: Postop check status post right total hip replacement. The patient is doing well, has no major issues. He denies any chest pain, shortness of breath, fever, chills, nausea, vomiting or headache. OBJECTIVE: Vital signs are stable. He is afebrile. Neurovascular check femoral sciatic nerve is normal. X-rays postop look excellent. ASSESSMENT: Doing well status post right total hip replacement. Mobilize as soon as he starts to wake up. Hep-Lock IV after lunch. Continue protocol.
[2018-08-23] MEDS: ACETAMINOPHEN 500 MG TAB PO SCH ×2 (13:01→20:52)
[2018-08-23] MEDS ORDERED: TRANEXAMIC ACID 1,000 MG in 0.9 % SODIUM CHLORIDE 100 ML IV SCH (14:30)
[2018-08-23] MEDS: CEFAZOLIN 2000MG 2,000 MG/15 ML SYR IV SCH ×2 (14:32→21:31)
[2018-08-23] MEDS ORDERED: WARFARIN SOD 5 MG TAB PO SCH (16:00)
[2018-08-23] MEDS: FERROUS GLUCONATE 324 MG TAB PO SCH (17:57)
[2018-08-23] MEDS ORDERED: TAMSULOSIN HCL 0.4 MG CAP PO SCH (21:00)
[2018-08-23] MEDS ORDERED: SENNA 8.6 MG TAB PO SCH (21:00)
[2018-08-24] MEDS: ACETAMINOPHEN 500 MG TAB PO SCH (05:56)
[2018-08-24] MEDS: KETOROLAC TROMETHAMINE 15 MG/ML VIAL IV SCH (05:56)
[2018-08-24] MEDS: LEVOTHYROXINE SODIUM 137 MCG TABLET PO SCH (05:57)
[2018-08-24 06:00] LABS: Basophils # (auto) 0.01 K/uL (0-0.2); Basophils % (auto) 0.1 %; Eosinophils # (auto) 0.01 K/uL (0-0.5); Eosinophils % (auto) 0.1 %; Hematocrit (blood only) 34.1 % (42-52); Hemoglobin 11.7 g/dL (14.0-18.0); Immature Granulocytes # (auto) 0.02 K/uL (0.00-0.02); Immature Granulocytes % (auto) 0.2 %; Lymphocytes # (auto) 0.72 K/uL (1.2-3.4); Lymphocytes % (auto) 6.3 %; Mean Corpuscular Hgb Conc 34.3 g/dL (32-36); Mean Corpuscular Volume 93.7 fL (80-100); Mean Platelet Volume 10.5 fL (7.4-10.4); Monocytes # (auto) 1.17 K/uL (0.11-0.59); Monocytes % (auto) 10.2 %; Neutrophils # (auto) 9.59 K/uL (1.4-6.5); Neutrophils % (auto) 83.1 %; Platelet Count 240 K/uL (130-400); RDW Coefficient of Variation 12.8 % (11.5-14.5); RDW Standard Deviation 43.7 fL (36.4-46.3); Red Blood Count 3.64 M/uL (4.7-6.1); White Blood Count 11.52 K/uL (4.8-10.8)
[2018-08-24 06:08] LABS: INR 1.2 (0.9-1.1); Prothrombin Time 11.9 Seconds (9.0-12.0)
[2018-08-24 06:50] LABS: BUN Creatinine Ratio 26.2 (10-20); Calcium 8.1 mg/dl (8.5-10.1); Creatinine Clr Calc Pharmacy 65.4 ml/min; Est GFR (Non-African American) 67.3; Potassium 3.8 mmol/L (3.5-5.1)
--- NOTE | 2018-08-24 06:55 | Progress Note ---
DATE: 08/24/2018 SUBJECTIVE: Postop day #1 status post right total hip replacement. The patient is doing well. Denies chest pain, shortness of breath, fever, chills, nausea, vomiting or headache. OBJECTIVE: Vital signs are stable. He is afebrile. Neurovascular check femoral sciatic nerve is normal. Hip is located. Wound dressing clean, dry and intact. Hematocrit is stable in the mid 30s. INR is 1.2. ASSESSMENT: Doing well. Discharged to home today after PT, OT and dressing change by PA this morning. Discharge on 4 mg of Coumadin daily. Check INR on Tuesday. Follow up in 2 weeks.
--- NOTE | 2018-08-24 07:00 | Discharge Summary ---
CHIEF COMPLAINT: Right hip pain. HISTORY OF PRESENT ILLNESS: Underwent elective right total hip replacement. Hospital course has been uneventful. At this point in time, he is ambulatory. Pain is well managed. PAST MEDICAL HISTORY: Remarkable for hypothyroidism, history of sarcoidosis, history of malignant melanoma, BPH, osteoarthritis, history of Crohn's colitis, history of UTIs. PAST SURGICAL HISTORY: Previous surgeries include colonoscopy, Mohs surgery, nasal endoscopy, nasal septal defect repair, radical neck dissection, knee surgery for MCL repair. FAMILY HISTORY: Remarkable for thyroid cancer. 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 No tobacco or alcohol use. ALLERGIES: None. PREADMISSION MEDICATIONS: Include Aleve, aspirin, multivitamin, Synthroid, tamsulosin. He will discontinue the Aleve. He will add Coumadin to keep INR 1.8-2.2, discharge on 4 mg. Check INR on Tuesday. P.r.n. pain medication, see prescription. REVIEW OF SYSTEMS: Noncontributory. ASSESSMENT: Status post right total hip replacement, discharged to home today after PT, OT. Discharge on 4 mg Coumadin. Check INR on Tuesday. Follow up in 2 weeks for staple removal. Case management involved.
[2018-08-24] MEDS: ORTHO WARFARIN NOMOGRAM SCH (07:11)
[2018-08-24] MEDS: ASPIRIN 81 MG ECTAB PO SCH (07:33)
[2018-08-24] MEDS: DOCUSATE SODIUM 100 MG CAP PO SCH (07:33)
[2018-08-24] MEDS: MULTIVITAMIN TAB PO SCH (07:33)
[2018-08-24] MEDS: FERROUS GLUCONATE 324 MG TAB PO SCH (07:33)
[2018-08-24] MEDS ORDERED: dexAMETHasone 10 MG in SYRINGE 0 ML IV SCH (08:00)
--- NOTE | 2018-08-24 09:04 | Orthopedic Progress Note ---
Date of Service August 24, 2018 Assessment & Plan (1) Status post total hip replacement, right: Patient is postop day 1 right total hip arthroplasty. Dressing was changed by me. New pressure dressing was applied. Start PT/OT this morning. Anticipate discharge to home after physical therapy is completed. Arrangements have been made for [facility] for home health. Coumadin today per nomogram. He will continue on 4 mg daily through the weekend and have his blood checked on Tuesday. Continue total hip precautions. Ambulate with his walker Follow-up in the office in 2 weeks as scheduled for staple removal Subjective Patient is seen in his room this morning. His is present. He states he did well overnight. He has been ambulating in the [place]. Currently eating breakfast. Denies any chest pain, shortness of breath, nausea, vomiting, abdominal pain, or uncontrolled hip pain. He feels he is ready to go home. Physical Exam Vital Signs (Past 24 Hours): Last Vital Signs Temp 36.6 C 08/24/18 07:41 Pulse 62 08/24/18 07:41 Resp 16 08/24/18 07:41 BP 126/76 08/24/18 07:41 Pulse Ox 98 08/24/18 07:41 Physical Exam: Well-developed, well-nourished, elderly white male, in no acute distress. Initially sitting in his chair. He rises easily and stands without difficulty. Right hip has an intact postoperative bandage. Upon removal, he has a healing surgical incision. Keith are intact. Wound edges well approximated. Expected postoperative edema. No erythema or ecchymosis. No active drainage. Area is nonfluctuant. Supple motion of the right hip. Neurologic: Gross sensation is intact across the right leg by soft touch.
[2018-08-24] MEDS ORDERED: WARFARIN SOD 5 MG TAB PO ONE (11:00)
--- NOTE | 2018-08-24 11:36 | Anesthesiology Progress Note ---
Date of Service August 24, 2018 Anesthesia Post Procedure Vital Signs Vital Signs: Temp Pulse Pulse Resp BP Pulse Ox 08/24/18 09:04 36.6 C 71 62 16 126/76 98 08/24/18 07:41 36.6 C 62 16 126/76 98 08/24/18 04:03 36.9 C 57 L 15 115/63 96 08/23/18 23:19 37.0 C 65 15 110/59 L 97 08/23/18 19:59 36.6 C 68 17 118/68 97 08/23/18 15:24 36.6 C 59 L 15 121/73 99 08/23/18 12:35 71 16 130/69 96 08/23/18 11:36 65 16 116/66 97 Pain Intensity Right Hip: Pain Intensity: 2 Notes Mental Status: alert / awake / arousable and participated in evaluation Patient Amnestic to Procedure: Yes Nausea / Vomiting: adequately controlled Pain: adequately controlled Airway Patency, RR, SpO2: stable & adequate BP & HR: stable & adequate Hydration State: stable & adequate Neuraxial Anesthesia: was administered and sensory block resolved Anesthetic Complications: no major complications apparent and Pt Satisfied with anesthetic care
[2018-08-24] MEDS ORDERED: WARFARIN SOD 5 MG TAB PO SCH (16:00)
== END 2018-08-24 10:49 | disposition home health service (06) | DRG 470 ==
LOC: ASU 05:10 → 3E 09:49